=== PATIENT | female | born 1965 | race Caucasian/White ===

== ENCOUNTER 2023-07-16 23:23 | Inpatient (IN) | payer OTHER, SELFPAY ==
--- NOTE | ~2023-07-16 | XR_ITS ---
EXAMINATION: XR CHEST CLINICAL INFORMATION: Asthma. COMPARISON: None available. TECHNIQUE: Frontal view of the chest was obtained. FINDINGS: Normal appearance of the cardiomediastinal silhouette. Increased interstitial markings. No focal consolidation, pleural effusion or pneumothorax. Mild biapical subpleural thickening/scarring. Bony thorax is intact. XR/XR chest 1V IMPRESSION: Slightly increased interstitial markings that could be seen in the context of asthma, bronchitis, reactive airways disease or atypical infections.
[2023-07-16 23:26] VITALS: BP 146/80; PULSE 79; RESP 20; TEMP 36.6; O2SAT 99; BMI 28.1
[2023-07-17] VITALS (11 sets, daily range): BP systolic 107–126; BP diastolic 50–75; PULSE 73–102; RESP 16–18; TEMP 36.3–36.6; O2SAT 95–99
--- NOTE | 2023-07-17 | ECG_ITS ---
Test Reason : CHEST PAIN Blood Pressure : / mmHG Vent. Rate : 076 BPM Atrial Rate : 076 BPM P-R Int : 144 ms QRS Dur : 070 ms QT Int : 432 ms P-R-T Axes : 052 -07 013 degrees QTc Int : 486 ms Normal sinus rhythm Minimal voltage criteria for LVH, may be normal variant ( R in aVL ) Prolonged QT Abnormal ECG No previous ECGs available Referred By: Rufina Bryan Electronically Signed By:Kel Mayfield
[2023-07-17 00:48] LABS: Influenza A PCR NEGATIVE (Negative); Influenza B PCR NEGATIVE (Negative); Resp Syncy Virus RNA Qual PCR NEGATIVE (Negative); SARS COV2 PCR INHOUSE NEGATIVE (Negative)
--- NOTE | 2023-07-17 01:41 | ECG_ITS ---
Test Reason : SOB Blood Pressure : / mmHG Vent. Rate : 082 BPM Atrial Rate : 082 BPM P-R Int : 134 ms QRS Dur : 072 ms QT Int : 398 ms P-R-T Axes : 052 -04 028 degrees QTc Int : 464 ms Normal sinus rhythm with sinus arrhythmia Minimal voltage criteria for LVH, may be normal variant ( R in aVL ) Septal infarct , age undetermined Abnormal ECG No previous ECGs available Referred By: Generic ED Physician Electronically Signed By:OLEG MCKEON
[2023-07-17 01:57] LABS: MANUAL DIFF FLAG NO
[2023-07-17 01:59] LABS: Basophils Percent Auto 0.6 % (0-2); Eosinophils Absolute Auto 0.1 X10*3/uL (0.0-0.4); Hematocrit 36.1 % (37.0-47.0); Hemoglobin 12.4 g/dl (12.0-16.0); Imm Gran Abs Auto 0.01 X10*3/uL (0.00-0.03); Imm Gran Pct Auto 0.2 % (0.0-0.4); Lymphocytes Percent Auto 46.9 % (20-40); Mean Corpuscular HGB Conc 34.3 g/dl (31.0-35.0); Mean Corpuscular Hemoglobin 29.7 pg (27.0-33.0); Mean Corpuscular Volume 86.4 fL (80.0-98.0); Mean Platelet Volume 10.2 fL (9.4-12.3); Monocytes Absolute Auto 0.4 X10*3/uL (0.1-1.2); Monocytes Percent Auto 6.6 % (2-11); Neutrophils Absolute Auto 2.8 x10*3/uL (2.0-8.3); Neutrophils Percent Auto 43.7 % (45-73); Platelet Count 266 X10*3/uL (160-400); Red Blood Count 4.18 X10*6/uL (4.20-5.50); White Blood Count 6.4 X10*3/uL (4.8-10.8)
[2023-07-17 02:12] LABS: Anion Gap 15 (12-20); Blood Urea Nitrogen 23 mg/dL (9-16); Calcium 9.7 mg/dL (8.4-10.2); Carbon Dioxide 24 mmol/L (22-29); Chloride 107 mmol/L (96-108); Creatinine Clr Calc Pharmacy 58.7; Estimated Glomerular Filt Rate > 60; Glucose Random 99 mg/dL (60-115); Potassium 3.9 mmol/L (3.3-5.1); Sodium 142 mmol/L (135-145)
[2023-07-17] MEDS: Albuterol Sulfate 2.5 MG, Albuterol Sulfate (0.083%) 2.5 MG 5 MG INHALE (02:16)
[2023-07-17 02:24] LABS: Troponin-I High Sensitivity < 2.7 ng/L (<3.5-17.0)
--- NOTE | 2023-07-17 02:25 | PC.NURSE ---
Pt A&Ox3, Pt reports increase SOB with cough since Monday, states she tested + for flu. Pt speaking in full sentences, SpO2 99% on RA, RR 20, lung sounds wheezy. Pt reports CP stating while in [place] she stated having CP and rib pain worsening with coughing. RT at bedside. IV line placed.
--- OUTSIDE RECORDS SUMMARY | 2023-07-17 02:43 | XMS_ITS | Continuity of Care Document ---
Author Name Unknown Organization [facility] Address [address] [place] [address]- Care Team Providers Care Multimedia Educational Specialist Name Role Phone Zeb GRIJALVA, Oneida Paiz Primary Care Physician [phone] [place] [facility] [place] - 06/14/[address] [address] Attending Physician: Felisha Sanchez MD Admitting Physician: Felisha Sanchez MD Referring Physician: Felisha Sanchez MD Allergies, Adverse Reactions, Alerts Substance Reaction Severity Status Percocet itchy/ vomiting Active oxyCODONE Active traMADol Active Immunizations Given and Recorded Vaccine Date Status Refusal Reason influenza virus vaccine, inactivated 04/14/15 Give n influenza virus vaccine, inactivated 05/19/14 Give n tetanus-diphtheria toxoids (Td) 1 04/30/08 Given 1Admin Note: vis dated 12/24/93 given Medications acetaminophen 325 mg oral tablet 650 mg, By Mouth, Every 4 hours, PRN, Temperature Greater than 100.5, Refills 0, Maintenance, Pain , Mild, 01/31/21 7:42:00 EDT, Partial fill upon patient request if the prescription is for a schedule II opioid drug. Start Date: 01/31/21 Status: Ordered Flovent HFA 110 mcg/inh inhalation aerosol 2 puffs, Inhalation, 2 times a day, INHALE 2 PUFFS BY MOUTH TWICE A DAY Start Date: 01/28/21 Status: Ordered gabapentin 300 mg oral capsule 300 mg, 1, capsule, By Mouth, Daily at bedtime, TAKE 1 CAPSULE BY MOUTH EVERY DAY AT BEDTIME WITH 100MG CAPSULE Start Date: 01/28/21 Status: Ordered methocarbamol 750 mg oral tablet 1 tablet = 750 mg, By Mouth, 3 times a day, PRN Spasm, TAKE 1 TABLET BY MOUTH 3 TIMES DAILY NEEDED (MUSCLE SPASM, WILL CAUSE SEDATION). Start Date: 01/28/21 Status: Ordered montelukast 10 mg oral tablet 10 mg, 1, tablet, By Mouth, Daily, TAKE 1 TABLET BY MOUTH EVERY DAY AT BEDTIME Start Date: 01/28/21 Status: Ordered omeprazole 20 mg oral enteric coated capsule 1 capsule = 20 mg, By Mouth, Daily, TAKE 1 CAPSULE BY MOUTH EVERY DAY Start Date: 01/28/21 Status: Ordered predniSONE 10 mg oral tablet 4 tablet = 40 mg, By Mouth, Daily, Decrease by 1 tablet every third day and then stop, # 30 tablet,0 Refills, Maintenance, 01/31/21 7:44:00 EDT, Tablet, [facility], Partial fill upon patient request if the prescription is for a schedule... 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 pt went Social History Social History Type Response Smoking Status Former smoker; Tobac co user in household: No entered on: 09/24/15 Sex Patient Care team information Care Team Personnel Name: Claudia Tobar RN Position: S AMB Nurse Member Role: Primary Care Nurse Name: Zeb GRIJALVA, Oneida Paiz Position: Reference Physician Member Role: PCP Address: Address: [address] [place] [address], [address] [place] [address]- [place] Name: Carole JIMENEZ, Sia Position: S RN Member Role: Primary Care Nurse Care Team Related Persons Name: WILLY MUÑOZ Address: [address] [address] Name: LEOLA REDDY Address: [place] [address]
--- OUTSIDE RECORDS SUMMARY | 2023-07-17 02:43 | XMS_ITS | Continuity of Care Document ---
Author Name Unknown Organization [facility] Address [address], [address], [address] [place] [address]- Care Team Providers Care Utility Operator Yarn Name Role Phone Zeb GRIJALVA, Oneida D Primary Care Physician [phone] Encounter [facility] [place] Date(s): 09/30/20 - 10/30/20 [facility] [address], [address], [address] [place] [id number] Allergies, Adverse Reactions, Alerts Substance Reaction Severity Status Percocet itchy/ vomiting Active Immunizations Given and Recorded Vaccine Date Status Refusal Reason influenza virus vaccine, inactivated 04/14/15 Give n influenza virus vaccine, inactivated 05/19/14 Give n tetanus-diphtheria toxoids (Td) 1 04/30/08 Given 1Admin Note: vis dated 12/24/93 given Medications No Home Meds Maintenance, 02/17/17 14:44:51, Compound Start Date: 02/17/17 Status: Ordered Problem List Condition Effective Dates Status Health Status Inform ant Abnormal liver enzymes(Confirmed) Active Lockhart's Esophagus, 2014 bi opsies negative(Confirmed) 1, 2 Active Chronic neck pain, florentino dege netavie changes Xray 04/2013(Confirmed) Active Fibromyalgia(Confirmed) Active Heartburn symptom(Confirmed) Active Liver enzymes normal(Confirmed) Active Low back pain with sciatica(Confirmed) Active Migraines(Confirmed) Active Nausea(Confirmed) Active Nonspecific Low Blood Pressu re Reading, chronically low(Confirmed) Active Non-ulcer dyspepsia(Confirmed) Active Urinary incontinence(Confirmed) Active no metaplasia 2old records state that in 2012 in her previous PCP, sent to EGD for this Barretts? pt went Social History Social History Type Response Smoking Status Former smoker; Tobac co user in household: No entered on: 09/24/15 Sex
--- OUTSIDE RECORDS SUMMARY | 2023-07-17 02:43 | XMS_ITS | Continuity of Care Document ---
Author Name Unknown Organization [facility] Address [address] [place] [address]- Care Team Providers Care Sawsmith Name Role Phone Zeb GRIJALVA, Oneida Paiz Primary Care Physician Encounter [facility] Date(s): 12/21/22 - 12/21/[address] [address]- Encounter Diagnosis RUQ abdominal pain(Final) - 12/21/22 Bacteriuria(Final) - 12/21/22 Vomiting(Final) - 12/21/22 Discharge Disposition: A-D/C Home Attending Physician: Shalom Anderson MD Admitting Physician: Shalom Anderson MD Referring Physician: Not on Staff, Referring MD Allergies, Adverse Reactions, Alerts Substance Reaction Severity Status Percocet itchy/ vomiting Active traMADol Active oxyCODONE Active Immunizations Given and Recorded Vaccine Date [...] AT BEDTIME Start Date: 01/28/21 Status: Ordered MorPHINE Inj 4 mg, Injection, IV Push Slowly, Once, Routine, 12/21/22 16:00:00 EDT, Stop date 12/21/22 16:00:00 EDT Start Date: 12/21/22 Stop Date: 12/21/22 Status: Completed omeprazole 20 mg oral enteric coated capsule 1 capsule = 20 mg, By Mouth, Daily, TAKE 1 CAPSULE BY MOUTH EVERY DAY Start Date: 01/28/21 Status: Ordered ondansetron 4 mg oral tablet, disintegrating 1 tablet = 4 mg, By Mouth, Every 8 hours, PRN as needed for nausea/vomiting, for 3 days, # 9 tablet, 0 Refills, Acute 12/24/22 19:01:00 EDT, 12/21/22 19:01:00 EDT, DIS Tablet, [facility], Partial fill upon patient request if the prescrip... Start Date: 12/21/22 Stop Date: 12/24/22 Status: Ordered predniSONE 10 mg oral tablet 4 tablet = 40 mg, By Mouth, Daily, Decrease by 1 tablet every third day and then stop, # 30 tablet,0 Refills, Maintenance, 01/31/21 7:44:00 EDT, Tablet, [facility], Partial fill upon patient request [...] 2 Confirmed Active Chronic neck pain, florentino degenetavie changes Xray 04/2013 Confirmed Active Fibromyalgia Confirmed [...] to EGD for this Barretts? pt went Results Radiology Reports * Exam Date Time Procedure Performing Provider Status 12/21/22 4:05 PM US RUQ Tevin Emerson; Auth (V erified) Notes: (US RUQ) Reason For Exam: Cholecystitis RESULT: US RUQ US RUQ Hx of Present Illness: RUQ sharp pain x3 days. +nausea, dizziness, fatigued. My liver enzymes are elevated, was last checked 2 months ago .; Reason: Cholecystitis; Clinical Question(s): Cholecystitis COMPARISON: 08/05/2013. FINDINGS: Liver: Normal in size and echotexture. No focal lesion. Smooth hepatic contour. Main portal vein patent with normal hepatopetal direction of flow. Gallbladder: No gallstones. Normal wall thickness. No pericholecystic fluid. Negative Granados sign, although patient received analgesic premedication which may reduce the accuracy of this finding. Biliary Tree: No intrahepatic or extrahepatic bile duct dilation is identified. Common duct measures: 0.5 cm. Pancreas: No abnormality in the visualized portions of the pancreas. Right kidney: 11.5 cm in length. Normal parenchymal echotexture and thickness. No hydronephrosis, stone or mass. IMPRESSION: Normal right upper quadrant ultrasound. WSN: [id number] Ordering Physician: Joanne Maddox Dictated By: Indio Tabares MD Dictated Date/Time: 12/21/22 4:39 pm Reviewed By: Indio Tabares MD Signed By: Indio Tabares MD Signed Date/Time: 12/21/22 4:39 pm Transcribed By: CLAUDE Transcribed Date/Time: 12/21/22 4:37 pm Vital Signs Most recent to oldest [Reference Range]: 1 2 3 Height 145 cm (12/21/22 7:13 PM) 145 cm (12/21/22 12:55 PM) Weight 58.2 kg (12/21/22 7:13 PM) 58.2 kg (12/21/22 12:55 PM) Oxygen Saturation [94-100 %] 97 % (12/21/22 7:13 PM) 99 % (12/21/22 3:20 PM) 97 % (12/21/22 12:55 PM) Pulse Rate [55-90 bpm] 65 bpm (12/21/22:13 PM) 62 bpm (12/21/22 3:20 PM) 85 bpm (12/21/22 12:55 PM) Body Mass Index [18.5-24.99 kg/m2] 27.68 kg/m2 *H* (12/21/22:) Blood Pressure [90-138/55-84 mm Hg] 98/62mm Hg (12/21/22:13 PM) 109/54mm Hg (12/21/22 3:20 PM) 111/64mm Hg (12/21/22 12:55 PM) Respiratory Rate [16-30 br/min] 18 br/min (12/21/22:13 PM) 18 br/min (12/21/22 3:25 PM) 16 br/min (12/21/22 3:20 PM) Temperature [96.8-100.4 DegF] 97.4 DegF (12/21/22:13 PM) 97 DegF (12/21/22 3:20 PM) 98.5 DegF (12/21/22 12:55 PM) Mode of Delivery (Oxygen) Room air (12/21/22 7:13 PM) Room air (12/21/22 3:20 PM) Room air (12/21/22 12:55 PM) Blood pressure sites Arm, right (12/21/22:13 PM) Arm, left (12/21/22 12:55 PM) Temperature Route Oral (12/21/22 7:13 PM) Temporal (12/21/22 3:20 PM) Temporal (12/21/22 12:55 PM) Dry Weight 58.2 kg (12/21/22 7:13 PM) 58.2 kg (12/21/22 12:55 PM) Weight Obtained Via Standing scale (12/21/22 12:55 PM) Dry Weight Obtained Via Standing scale (12/21/22 12:55 PM) Social History Social History Type Response Smoking Status Former smoker; Tobac co user in household: No entered on: 09/24/15 Sex Note * Joanne Hess: PERFORM Event Display: Patient Education Leaflets Authored Date: [id number] Vomiting (Adult) ?? [id number] Vomiting (Adult) Vomiting is a common symptom that may be due to different causes. These include gastroenteritis (stomach flu), food poisoning, and gastritis. Other more serious causes of vomiting may be hard to diagnose early in the illness. That's why it's important to watch for the warning signs listed below. The main danger from repeated vomiting is dehydration. This is because of the loss of water and minerals from the body. When this occurs, your body fluids must be replaced. Home care ??? If symptoms are severe, rest at home for the next 24 hours. ??? Because your symptoms may be from an infection, wash your hands often and well. Use soap and clean, running water or alcohol-based golf course designer to keep from spreading the infection to others. ??? Wash your hands for at least 20 seconds. Scrub all surfaces of your hands, including between your fingers and under your fingernails each time you wash. Humming the Happy Birthday song twice while you wash is an easy way to make sure you've washed for 20 seconds. ??? Wash your hands after using the toilet, before and after preparing food, before eating food, after changing a diaper, cleaning a wound, caring for a sick person, and blowing your nose, coughing, or sneezing. You should also wash your hands after caring for someone who is sick, touching pet food, or treats, and touching an animal, or animal waste. ??? You may use acetaminophen??or NSAID medicines such as ibuprofen or naproxen to control fever, unless another medicinewas prescribed. Talk with your provider before using these medicines if you have chronic liver or kidney disease or ever had a stomach ulcer or digestive bleeding. Never give aspirin to anyone younger than 18 who is ill with a fever. It may cause severe liver damage. Don't use NSAID medicines if you are already taking one for another condition such as arthritis or take aspirin for heart disease or after a stroke. ??? Don't use tobacco or drink alcohol. These may make your symptoms worse. If youhave trouble stopping either substance, ask your provider for treatment resources. ??? If medicinesfor vomiting were prescribed, take as directed. Tell your provider if they don't work within the expected time period. ??? Once vomiting stops, then follow these guidelines: During the first 12 to 24 hours, follow the diet below: ??? Fruit juices. Apple, grape juice, clear fruit drinks, and electrolyte replacement drinks. ??? Beverages. Water, soft drinks without caffeine; mineral water (plain or flavored), and decaffeinated tea and coffee. ??? Soups. Clear broth and bouillon. ??? Desserts. Plain gelatin, ice pops, and fruit juice bars. As you feel better, you may add 6 to 8 ounces of yogurt per day. During the next 24 hours you may add the following to the above: ??? Hot cereal, plain toast, bread, rolls, and crackers ??? Plain noodles, rice, mashed potatoes, and chicken noodle or rice soup ??? Unsweetened canned fruit such as applesauce, bananas. Don't have pineapple or citrus. ??? Limit caffeine and chocolate. No spices or seasonings except salt. During the next 24 hours: Gradually go back to your normal diet, as you feel better and your symptoms lessen. ?? Follow-up care Follow up with your healthcare provider as advised. ?? When to seek medical advice Call your healthcare provider right away if any of these occur: ??? Constant right-sided lower belly pain or increasing general belly pain ??? Continued vomiting (unable to keep liquids down) for 24 hours ??? Vomiting blood or what looks like coffee grounds ??? Swollen belly ??? Frequent diarrhea (more than 5 times a day), or blood (red or black color) or mucus in diarrhea ??? Peeing less than usual or extreme thirst ??? Weakness, dizziness, or fainting ??? Unusually drowsy or confused ??? Fever of 100.4??F (38??C) oral or higher, or as directed by your provider ??? Yellow color of the eyes or skin ??? Other symptoms get worse or you have new symptoms ?? Last Reviewed Date: 2021 ?? [employer]. All rights reserved. This information is not intended as a substitute for professional medical care. Always follow your healthcare professional's instructions. ?? * Joanne Hess: PERFORM Event Display: Patient Education Leaflets Authored Date: [id number] Unknown Causes of Abdominal Pain (Adult) ?? [id number] Unknown Causes of Abdominal Pain (Adult) The exact cause of your belly (abdominal) pain is not clear. Your exam and tests don't suggest a dangerous cause at this time. This does not mean that this is something to worry about. Everyone likesto know the exact cause of the problem. But sometimes with belly pain, there is no clear-cut cause,and this could be a good thing. Your symptoms can be treated, and you should feel better.?? Your condition does not seem serious now. But sometimes the signs of a serious problem may take more time to appear. For this reason,??it's important for you to watch for any new symptoms, problems,??or worsening of your condition. Over the next few days, the abdominal pain may come and go. Or it may be constant. Other common symptoms can include nausea and vomiting. Sometimes it can be difficult to tell if you feel nauseous. You may just feel bad and not connect that feeling to nausea. Constipation, diarrhea, and a fever maygo along with the pain. The pain may continue even if treated correctly over the following days. Depending on how things go, sometimes the cause can become clear and you may need more??or different treatment. You may also need other evaluations, medicines, or tests. Home care Your healthcare provider may prescribe medicine for pain, symptoms, or an infection. ??Follow the healthcare provider's instructions for taking these medicines. General care ??? Rest as much as you can until your next exam. No strenuous activities. ??? Try to not do anything that may have caused your symptoms. This might be not taking any medicines unless otherwise directed by your healthcare provider. It might be not eating certain foods or doing certain activities. ??? Find positions that ease discomfort. A small pillow placed on your belly may help relieve pain. ??? Something warm on your belly such as a heating pad may help, but be careful not to burn yourself. Diet ??? Don???t??force yourself to eat, especially if having cramps, vomiting, or diarrhea. ??? Water is important so you don't get dehydrated. Soup may also be good. Sports drinks may also help, especially if they are not too acidic. Don't drink sugary drinks as this can make things worse. Take liquids in small amounts. Don???t??guzzle them. ??? Caffeine sometimes makes the pain and cramping worse. ??? Don???t take??dairy products if you have vomiting or diarrhea. ??? Don't eat large amounts at a time. Eat several small meals during the day instead of 2 or 3 larger meals. Wait a few minutesbetween bites. ??? Eat a diet low in fiber (called a low-residue diet). Foods allowed include refined breads, white rice, fruit and vegetable juices without pulp, tender meats. These foods will pass more easily through the intestine. ??? Don???t have??whole-grain foods, whole fruits and vegetables,meats, seeds and nuts, fried or fatty foods, dairy, alcohol and spicy foods until your symptoms go away. ?? Follow-up care Follow up with your healthcare provider, or as advised, if your pain does not begin to improve in the next 24 hours. ?? Call 911 Call?? 911 if any of these occur: ??? Trouble breathing ??? Confusion ??? Fainting or loss of consciousness ??? Rapid heart rate ??? Seizure ?? When to seek medical advice Call your healthcare provider right away if any of these occur: ??? Pain gets worse or moves to theright lower abdomen ??? New or worsening vomiting or diarrhea ??? Swelling of the abdomen ??? Unable to pass stool for more than??3 days ??? Fever of 100.4??F (38??C) or higher, or as directed by your healthcare provider ??? Blood in vomit or bowel movements (dark red or black color) ??? Yellow color of eyes and skin (jaundice) ??? Weakness, dizziness ??? Chest, arm, back, neck, or jaw pain ??? Can't keep down medicines, liquids, or water because of too much vomiting ??? If you have a vagina: unexpected vaginal bleeding or missed period ?? Last Reviewed Date: 2021 ?? [id number] [employer]. All rights reserved. This information is not intended as a substitute for professional medical care. Always follow your healthcare professional's instructions. ?? US Abdomen RUQ * BHSP[facility]ers[employer] , CIS S: TRANSCRIBE Indio Tabares MD: VERIFY Event Display: Result: Authored Date: [id number] US RUQ Hx of Present Illness: RUQ sharp pain x3 days. +nausea, dizziness, fatigued. My liver enzymes are elevated, was last checked 2 months ago .; Reason: Cholecystitis; Clinical Question(s): Cholecystitis COMPARISON: 08/05/2013. FINDINGS: Liver: Normal in size and echotexture. No focal lesion. Smooth hepatic contour. Main portal vein patent with normal hepatopetal direction of flow. Gallbladder: No gallstones. Normal wall thickness. No pericholecystic fluid. Negative Granados sign, although patient received analgesic premedication which may reduce the accuracy of this finding. Biliary Tree: No intrahepatic or extrahepatic bile duct dilation is identified. Common duct measures: 0.5 cm. Pancreas: No abnormality in the visualized portions of the pancreas. Right kidney: 11.5 cm in length. Normal parenchymal echotexture and thickness. No hydronephrosis, stone or mass. IMPRESSION: Normal right upper quadrant ultrasound. WSN: [id number] Ordering Physician: Joanne Maddox Dictated By: Indio Tabares MD Dictated Date/Time: 12/21/22 4:39 pm Reviewed By: Indio Tabares MD Signed By: Indio Tabares MD Signed Date/Time: 12/21/22 4:39 pm Transcribed By: CLAUDE Transcribed Date/Time: 12/21/22 4:37 pm Patient Care team information Care Team Personnel Name: Claudia Tobar RN Position: [facility] AMB Nurse Member Role: Primary Care Nurse Name: Oneida Carrington MD Position: [facility] Physician - Primary Care Member Role: PCP Address: Address: [address] [place] [address]- Name: Sia Lam RN Position: [facility] RN Member Role: Primary Care Nurse Name: Paz Dixon RN Position: [facility] ED RN W/OE and Tasks Member Role: Patient Care Provider Name: Asa Dodd RN Position: [facility] ED RN W/OE and Tasks Member Role: Patient Care Provider Name: Shalom Anderson MD Position: [facility] ED Medicine MD Member Role: Admitting Physician Address: Address: [address] [place] [id number]- Name: Joanne Hess Position: [facility] Associate Professional Member Role: Physician Health Safety And Environment Manager Address: Address: [address] [place] [id number]- Name: Noris Caicedo Position: [facility] ED TA [facility] Member Role: Cafeteria Team Leader Care Team Related Persons Name: TONI WILLY Address: [address] [address] Name: LEOLA REDDY Address: [place] [address]
--- OUTSIDE RECORDS SUMMARY | 2023-07-17 02:44 | XMS_ITS | Continuity of Care Document ---
Author Name Unknown Organization [facility] ter Address [address] [place] [id number]- Care Team Providers Care Truck Driver Instructor Name Role Phone Zeb GRIJALVA, Oneida Chencho Primary Care Physician Encounter [facility] Date(s): 01/28/21 - 01/31/[address] [address]- Discharge Disposition: A-D/C Home Attending Physician: Fawad GRIJALVA, Luisito Admitting Physician: Rey Mullen MD Referring Physician: Not on Staff, Referring [...] tablet,0 Refills, Maintenance, 01/31/21 7:44:00 EDT, Tablet, [facility], Partial fill upon patient request [...] Date: 01/28/21 Status: Ordered Problem List Condition Effective Dates Status Health Status Inform ant Abnormal liver enzymes(Confirmed) Active Lockhart's Esophagus, 2014 bi opsies negative(Confirmed) 1, 2 Active Chronic neck pain, florentino jennifer netavie changes Xray 04/2013(Confirmed) Active Fibromyalgia(Confirmed) Active Heartburn symptom(Confirmed) Active Liver enzymes normal(Confirmed) Active Low back pain with sciatica(Confirmed) Active Migraines(Confirmed) Active Nausea(Confirmed) Active Nonspecific Low Blood Pressu re Reading, chronically low(Confirmed) Active Non-ulcer dyspepsia(Confirmed) Active Urinary incontinence(Confirmed) Active no metaplasia 2old records state that in 2012 in her previous PCP, sent to EGD for this Barretts? pt went Vital Signs Most recent to oldest [Reference Range]: 1 2 3 Height 150 cm (01/31/21 7:58 AM) 150 cm (01/31/21 3:27 AM) 150 cm (01/31/21 12:20 AM) Weight 59 kg (01/28/21 7:47 PM) Oxygen Saturation [94-100 %] 96 % (01/31/21 7:58 AM) 94 % (01/31/21 3:27 AM) 98 % (01/31/21 12:20 AM) Pulse Rate [55-90 bpm] 70 bpm (01/31/21 7:58 AM) 69 bpm (01/31/21 3:27 AM) 71 bpm (01/31/21 12:20 AM) Body Mass Index [18.5-24.99] 26.22 *H* (01/28/21 7:47 PM) Blood Pressure [90-138/55-84 mm Hg] 102/56mm Hg (01/31/21 7:58 AM) 104/59mm Hg (01/31/21 3:27 AM) 117/65mm Hg (01/31/21 12:20 AM) Respiratory Rate [16-30 br/min] 17 br/min (01/31/21 7:58 AM) 18 br/min (01/31/21 7:23 AM) 20 br/min (01/31/21 3:27 AM) Temperature [96.8-100.4 DegF] 98.0 DegF (01/31/21 7:58 AM) 97.6 DegF (01/31/21 3:27 AM) 98.5 DegF (01/31/21 12:20 AM) Mode of Delivery (Oxygen) Room air (01/31/21 7:58 AM) Room air (01/31/21 3:27 AM) Room air (01/31/21 12:20 AM) Blood pressure sites Arm, left (01/31/21 7:58 AM) Arm, left (01/31/21 3:27 AM) Arm, right (01/31/21 12:20 AM) Temperature Route Oral (01/31/21 7:58 AM) Oral (01/31/21 3:27 AM) Oral (01/31/21 12:20 AM) Dry Weight 59 kg (01/28/21 7:47 PM) Weight Obtained Via Patient/family state d (01/28/21 7:47 PM) Dry Weight Obtained Via Patient/family s tated (01/28/21 7:47 PM) Social History Social History Type Response Smoking Status Former smoker; Tobac co user in household: No entered on: 09/24/15 Sex
--- OUTSIDE RECORDS SUMMARY | 2023-07-17 02:44 | XMS_ITS | Continuity of Care Document ---
Author Name Unknown Organization [facility] Address [address], [address], [address] [place] [address]- Care Team Providers Care Flexible Machining System Machinist Name Role Phone Zeb GRIJALVA, Oneida D Primary Care Physician [place] [facility] [place] [facility] [address] [place], [place] [address] [[email or web address]] Attending Physician: Marija Juarez Admitting Physician: Marija Juarez Referring Physician: AdmtrMarija Allergies, Adverse Reactions, Alerts Substance Reaction Severity [...]
--- OUTSIDE RECORDS SUMMARY | 2023-07-17 02:44 | XMS_ITS | Continuity of Care Document ---
Author Name Unknown Organization [facility] Address [address], [address], [address] [place] [address]- Care Team Providers Care Casino Change Attendant Name Role Phone Zeb GRIJALVA, Oneida D Primary Care Physician [phone] [place] [facility] [place]20 [facility] [address], [address] [place] [id number] Attending Physician: Daniela Carrington MD, [facility] Referring Physician: Skyler Fry Allergies, Adverse Reactions, Alerts Substance Reaction Severity [...]
--- NOTE | 2023-07-17 03:40 | ED_ITS ---
HPI - Asthma General Chief Complaint: Asthma Stated Complaint: Diff breathing Time Seen by Provider: 07/17/23 03:39 Source: patient Mode of arrival: ambulatory Limitations: no limitations History of Present Illness HPI Narrative: 58-year-old female with a history of asthma who presents emergency department for evaluation of fever, chills, headache, body ache, nonproductive cough, pleuritic chest pain, shortness of breath and wheezing x3 days. Patient states that she has been using her albuterol inhaler every 4 hours and her nebulizer twice a day with no improvement her symptoms. She states that her cough is gotten worse. She is complaining of pleuritic chest pain which is worse with coughing worse with breathing. Related Data Allergies Allergy/AdvReac Type Severity Reaction Status Date / Time acetaminophen [From Percocet] Allergy Weakness Verified 07/16/23 23:25 oxycodone [From Percocet] Allergy Weakness Verified 07/16/23 23:25 Review of Systems 2 Review of Systems: Yes all other systems are reviewed and are negative [facility] Past Medical History [facility] Narrative: Social history: She denies tobacco, alcohol and drug use Social History Social History Alcohol intake: never Smoked in Last 30 Days: No Use of substances other than those prescribed or required for medical reasons: No Advance Directives: No Advance Directives Information Provided: Yes Patient : No Physical Exam 2 Vital Signs: Vital Signs: Last Vital Signs Temp 97.8 F 07/16/23 23:26 Pulse 102 H 07/17/23 04:37 Resp 18 07/17/23 04:37 BP 120/75 07/17/23 04:37 Pulse Ox 98 07/17/23 04:37 O2 Del Method Room Air 07/17/23 04:37 BMI result Body Mass Index 28.1 Vital signs were normal Exam General: Awake, alert in no distress, patient has a persistent dry cough Head: Normocephalic, atraumatic EENT: PERRL, Lids normal, sclera normal, conjunctiva normal, nose normal , ears normal, throat without erythema or exudates Neck: Supple, no adenopathy, no trachea midline or C-spine tenderness Lung: Wheezing at the end of expiration, good inspiratory expiratory flow, diffuse rhonchi, no rales Chest: symmetric movement, nontender Heart: regular rate and rhythm, normal S1, S2 no murmurs or rubs Abdomen: soft, non-tender, nondistended, normal bowel sounds Back: no vertebral tenderness, no CVAT Extremities: no deformities, moves all extremities symmetrically Neuro: Awake, alert, oriented, normal speech, moves all extremities symmetrically Psych: Pleasant, cooperative Medications Administered Discontinued Medications Generic Name Dose Route Start Last Admin Trade Name Freq PRN Reason Stop Dose Admin Albuterol Sulfate 2.5 mg/ 5 mg 07/17/23 02:09 07/17/23 02:16 Albuterol Sulfate 2.5 mg INHALE 07/17/23 02:10 5 mg ONCE ONE Administration Albuterol/Ipratropium 3 ml 07/17/23 03:52 07/17/23 04:19 Albuterol/Iprat 2.5/0.5mg 3 Ml Ampul.Neb INHALE 07/17/23 03:53 3 ml ONCE ONE Administration Doxycycline Monohydrate 100 mg 07/17/23 03:50 07/17/23 03:59 Doxycycline Monohydrate 100 Mg Capsule PO 07/17/23 03:51 100 mg ONCE ONE Administration Methylprednisolone Sodium Succinate 125 mg 07/17/23 03:50 07/17/23 03:59 Methylprednisolone Sod Succ 125 Mg/2 Ml Vial IVPUSH 07/17/23 03:51 125 mg ONCE ONE Administration Medical Decision Making Medical Decision Making MDM Narrative: 58-year-old female with a history of asthma who presents emergency department for evaluation of fever, chills, headache, body ache, nonproductive cough, pleuritic chest pain, shortness of breath and wheezing x3 days. Patient has been using her inhalers and nebulizers with only minimal relief. Symptoms of got worse therefore she came to the emergency department. Vital signs were normal. Lung exam did reveal diffuse wheezing and rhonchi with good inspiratory and expiratory flow. Following evaluation was ordered: CBC, BMP, troponin, COVID-19, influenza, RSV, 12 EKG, chest x-ray 1. Patient was treated with Solu-Medrol 125 mg IV, albuterol nebulizer 5 mg IV 03:56 My interpretation patient's laboratory evaluation is as follows: CBC and CMP were normal. Troponin was below detectable limits. COVID-19, influenza and RSV were negative. Patient's chest x-ray revealed increased interstitial infiltrates consistent with atypical pneumonia Patient was given doxycycline 100 mg orally Patient was still wheezing therefore she was given a DuoNeb nebulizer 04:53 Patient states she is unable to complete the 2nd nebulizer secondary to nausea and vomiting. Patient is still wheezing and has not improved therefore I will discuss admission with the covering hospitalist. I did order ceftriaxone 1 g IV and Zithromax 500 mg IV for respiratory infection. Differential Diagnosis Differential Diagnoses: The differential diagnosis associated with the presentation includes Differential diagnosis includes was not limited to pneumonia, bronchitis, asthma exacerbation, viral syndrome, COVID-19, influenza, RSV Admission/Observation Consideration of admission/observation: Escalation of care including admission/observation considered Consult Healthcare Provider Management of the patient was discussed with: Hospitalist Lab Data MDM Lab Attestation statement: I reviewed the patient's lab results. See above 07/17/23 01:51 07/17/23 01:51 Labs: Lab Results 07/17/23 07/17/23 Range/Units 00:05 01:51 WBC 6.4 (4.8-10.8) X10*3/uL RBC 4.18 L (4.20-5.50) X10*6/uL Hgb 12.4 (12.0-16.0) g/dl Hct 36.1 L (37.0-47.0) % MCV 86.4 (80.0-98.0) fL MCH 29.7 (27.0-33.0) pg MCHC 34.3 (31.0-35.0) g/dl RDW 12.0 (11.0-16.0) % Plt Count 266 (160-400) X10*3/uL MPV 10.2 (9.4-12.3) fL Immature Gran % (Auto) 0.2 (0.0-0.4) % Neut % (Auto) 43.7 L (45-73) % Lymph % (Auto) 46.9 H (20-40) % [place] % (Auto) 6.6 (2-11) % Eos % (Auto) 2.0 (0-4) % Baso % (Auto) 0.6 (0-2) % Lymph # (Auto) 3.0 (1.2-4.9) X10*3/uL [place] # (Auto) 0.4 (0.1-1.2) X10*3/uL Eos # (Auto) 0.1 (0.0-0.4) X10*3/uL Baso # (Auto) 0.0 (0.0-0.2) X10*3/uL Abs Immat Gran (auto) 0.01 (0.00-0.03) X10*3/uL Absolute Neuts (auto) 2.8 (2.0-8.3) x10*3/uL Absolute Nucleated RBC 0.000 (0.0-0.012) X10*3/uL Nucleated RBC % (auto) 0.0 (0.0-0.2) /100WBC Sodium 142 (135-145) mmol/L Potassium 3.9 (3.3-5.1) mmol/L Chloride 107 (96-108) mmol/L Carbon Dioxide 24 (22-29) mmol/L Anion Gap 15 (12-20) BUN 23 H (9-16) mg/dL Creatinine 0.79 (0.5-1.4) mg/dL Estim Creat Clear Calc 58.7 Estimated GFR > 60 Random Glucose 99 (60-115) mg/dL Calcium 9.7 (8.4-10.2) mg/dL Troponin I High Sens < 2.7 (<3.5-17.0) ng/L Influenza Type A (PCR) NEGATIVE (Negative) Influenza Type B (PCR) NEGATIVE (Negative) RSV RNA Qual (PCR) NEGATIVE (Negative) SARS-CoV-2 RNA (RT-PCR) NEGATIVE (Negative) Independent Interpretation I performed an independent interpretation of an: EKG Interpretation: My interpretation patient's EKG done at 01:45 hours is as follows: Normal sinus rhythm rate of 82, normal WV interval, QRS duration and QTC interval, no ST segment elevation, no ST segment depression, flat T-wave in lead 3, no PACs, no PVCs, Q-wave in V1 in V 2 consistent with septal infarct. No previous EKG for comparison My interpretation patient's one-view chest x-ray is as follows: Increased interstitial markings consistent with atypical pneumonia Radiology Impression Discussion of test interpretation with radiology: I have reviewed the radiologist's reading. Radiologist Impression: XR chest 1V IMPRESSION: Slightly increased interstitial markings that could be seen in the context of asthma, bronchitis, reactive airways disease or atypical infections. Dictated By: Ana Gonzalez Independent Historian Clinical information obtained from an independent historian. History obtained from or confirmed by: Spouse Discharge Plan Discharge Patient Disposition: Admitted As Inpatient
[2023-07-17] MEDS: methylPREDNISolone Sod Succ 125 MG/2 ML VIAL IVPUSH (03:59)
[2023-07-17] MEDS: Doxycycline Monohydrate 100 MG CAPSULE PO (03:59)
[2023-07-17] MEDS: Albuterol/Iprat 2.5/0.5MG 3 ML AMPUL.NEB INHALE ×4 (04:19→20:25)
[2023-07-17] MEDS: ondansetron HCL 4 MG/2 ML VIAL IVPUSH (05:28)
[2023-07-17] MEDS: cefTRIAXone sodium 1 GM in 0.9 % Sodium Chloride 50 ML IV (05:30)
[2023-07-17 05:50] LABS: Lactic Acid 1.7 mmol/L (0.5-2.0)
[2023-07-17] MEDS: Azithromycin 500 MG in 0.9 % Sodium Chloride 250 ML 125 MG IV (05:55)
--- NOTE | 2023-07-17 06:00 | P.HPHOSP_ITS ---
History of Present Illness Date of Service: 07/17/23 Attending physician on admission: John Field Chief Complaint: 'My asthma has flared up' x 4 days Patient is a 58 year old [place]se speaking female with known history of asthma and who was recently diagnosed with the flu who presents to the emergency room last evening for evaluation of progressively worsening cough, shortness of breath and wheezing. She started feeling unwell soon after Kaci and saw her primary care provider on 07/12/23 and was diagnosed with the flu and was sent home with MDI inhalers. However since then, she has continued to experience subjective fevers and chills, generalized body aches, headaches, dry cough and pleuritic chest pain. Over the last couple days she has noted worsening symptoms especially the cough, wheezing and shortness of breath. She has used both her Albuterol MDI inhalers and updrafts without any significant relief hence her decision to present to the emergency room tonight where initial evaluation done on arrival was notable for extensive wheezing and mild respiratory distress. She was however not febrile and a chest x-ray done did not show any infiltrates. She has received intravenous Solu-Medrol, albuterol updrafts and empiri antibiotics with improvement in her condition though she is not at her baseline. Admission was requested for continued care. Review of Systems 2 Review of Systems: Yes all other systems are reviewed and are negative [facility] Medical History Elevated liver enzymes Asthma (Unknown) Functional capacity: independent ambulation Patient : No Pertinent family history: This was reviewed with the patient and is not pertinent to current admission. Surgical History History of bladder surgery Social History Alcohol intake: never Meds Allergies Allergy/AdvReac Type Severity Reaction Status Date / Time acetaminophen [From Percocet] Allergy Weakness Verified 07/16/23 23:25 oxycodone [From Percocet] Allergy Weakness Verified 07/16/23 23:25 Home Medications Medication Instructions Recorded Confirmed Last Taken Type albuterol sulfate 2.5 mg/3 mL 1 inhalation Q6H PRN wheezing 07/17/23 Unknown History (0.083 %) solution for nebulization albuterol sulfate 90 mcg/actuation 2 puff inhalation Q4H PRN wheezing 07/17/23 07/17/23 Unknown History aerosol inhaler (Ventolin HFA) cholecalciferol (vitamin D3) 50 50 mcg PO DAILY 07/17/23 07/17/23 Unknown History mcg (2,000 unit) tablet vitamin E (dl, acetate) 180 mg 360 mg PO DAILY 07/17/23 07/17/23 Unknown History (400 unit) capsule Physical Exam 2 Vital Signs and Narrative: Vital Signs: Last Vital Signs Temp 97.8 F 07/16/23 23:26 Pulse 102 H 07/17/23 04:37 Resp 18 07/17/23 04:37 BP 120/75 07/17/23 04:37 Pulse Ox 98 07/17/23 04:37 O2 Del Method Room Air 07/17/23 04:37 BMI result Body Mass Index 28.1 General: Well nourished female in bed. Awake, alert and oriented x 4. In no apparent distress Eyes: No pallor or jaundice. PERRLA, EOMI HENT: Moist oral mucus membranes. No oropharyngeal lesions. Neck: Supple. No cervical adenopathy. No JVD Cardiovascular: Regular rate and rhythm. Normal heart sounds. No murmurs, rubs or gallops. No JVD. No peripheral edema. Respiratory: Normal respiratory effort with no accessory muscle use. Both inspiratory and expiratory wheezes scattered throughout both lung samuel Gastrointestinal: Abdomen is soft, non-tender, non-distended. NABS. No hepatosplenomegaly Extremities: No edema. No calf tenderness. Good peripheral pulses Skin: Warm/Dry. No rashes. No mottling. Capillary refill is < 2 seconds Neurological: AAOx4. Intact speech & cognition. Normal gait & balance. CN II - XII grossly intact but not individually tested. No motor or sensory deficits Hematologic: No bleeding. No ecchymosis. No swollen or tender lymph nodes. Psychiatric: Cooperative. Appropriate mood and affect . Results Labs 07/17/23 01:51 07/17/23 01:51 Labs: Laboratory Results - last 24 hr 07/17/23 07/17/23 07/17/23 00:05 01:51 05:29 MCV 86.4 MCH 29.7 MCHC 34.3 RDW 12.0 Plt Count 266 MPV 10.2 Immature Gran % (Auto) 0.2 Neut % (Auto) 43.7 L Lymph % (Auto) 46.9 H [place] % (Auto) 6.6 Eos % (Auto) 2.0 Baso % (Auto) 0.6 Lymph # (Auto) 3.0 [place] # (Auto) 0.4 Eos # (Auto) 0.1 Baso # (Auto) 0.0 Abs Immat Gran (auto) 0.01 Absolute Neuts (auto) 2.8 Absolute Nucleated RBC 0.000 Nucleated RBC % (auto) 0.0 Anion Gap 15 Estim Creat Clear Calc 58.7 Estimated GFR > 60 Random Glucose 99 Lactic Acid 1.7 Calcium 9.7 Influenza Type A (PCR) NEGATIVE Influenza Type B (PCR) NEGATIVE RSV RNA Qual (PCR) NEGATIVE SARS-CoV-2 RNA (RT-PCR) NEGATIVE ECG Interpretation: Normal sinus rhythm at 82 beats per minute with a normal MO interval and no acute ischemic changes. Imaging Radiologist's Impressions: Impressions Chest X-Ray 07/17/23 00:30 Slightly increased interstitial markings that could be seen in the context of asthma, bronchitis, reactive airways disease or atypical infections. Assessment and Plan (1) Asthma: Qualifiers: Asthma severity: severe Asthma persistence: persistent Asthma complication type: with acute exacerbation Qualified Code(s): J45.51 - Severe persistent asthma with (acute) exacerbation Status: Acute (2) Acute bronchitis: Status: Acute (3) Influenza: Status: Acute Plan 58 year old [place] speaking female with known history of asthma and who was recently diagnosed with the flu here with 1. Acute asthma exacerbation - likely exacerbated by the flu - admit and continue with scheduled steroids and duo nebs AND PRN Albuterol updrafts - add IV magnesium x1 dose - monitor peak flow 2. Acute bronchitis - likely a viral bronchitis - hold off antibiotics 3. Recent diagnosis of Flu - outside the window for treatment - continue symptomatic care DVT: SC Lovenox CODE STATUS: Full code Admission for at least 2 midnights for management of acute asthma exacerbation Total time managing care of this patient today: 75 minutes. Quality Stroke Does the patient have a stroke diagnosis?: No VTE Prior VTE?: No VTE Risk Level:: Medical - moderate - high VTE Device Contraindication: N/A - Device Ordered VTE Drug Contraindication: N/A - Med Ordered
[2023-07-17] MEDS: guaiFENesin DM 200/20/10 ML 10 ML SYRUP PO (06:28)
[2023-07-17] MEDS: Ketorolac Tromethamine 30 MG/ML VIAL IVPUSH (06:28)
--- NOTE | 2023-07-17 07:40 | PC.NURSE ---
PT ATE BKFST. UP TO BR. NO DISTRESS. COMFORTABLE AT THIS TIME
[2023-07-17] MEDS: Magnesium Sulfate/H2O 2 GM/50 ML PIGGYBACK IV (07:50)
--- NOTE | 2023-07-17 08:07 | PHA.MEDREC ---
Pharmacy Consult ? Medication Reconciliation Pharmacy has completed the medication reconciliation.
[2023-07-17] MEDS: 0.9 % Sodium Chloride Flush 3 ML SYRINGE IVFLUSH ×2 (09:56→17:18)
[2023-07-17] MEDS: Docusate Sodium 100 MG CAPSULE PO (09:58)
[2023-07-17] MEDS: Enoxaparin Sodium 40 MG/0.4 ML SYRINGE SUBCUT (10:02)
[2023-07-17 10:13] LABS: Procalcitonin 0.04 ng/mL
--- NOTE | 2023-07-17 13:19 | PC.NURSE ---
pt waiting room assignment
--- NOTE | 2023-07-17 13:25 | P.EN_ITS ---
Event Note Date of Service: 07/17/23 Event Note: Day hospitalist update S: still wheezing though improved slightly O: Temp Pulse Resp BP Pulse Ox O2 Del Method 97.8 F 80 18 112/61 96 Room Air 07/16/23 23:26 07/17/23 11:39 07/17/23 11:39 07/17/23 06:17 07/17/23 06:17 07/17/23 06:17 Gen: in no acute distress HEENT: sclera anicteric, moist mucus membranes Neck: supple Lungs: extensive exp wheezing Heart: regular rate and rhythm, no murmurs Abd: soft, non-tender, non-distended Ext: no edema Skin: warm/well-perfused Neuro: alert and oriented x3, no focal findings Psych: appropriate affect A/P: d1 58yo F with asthma, recent diagnosis of influenza 07/12/23 admitted for asthma exacerbation asthma exacerbation due to influenza - continue steroids, scheduled/prn nebs - outside window for antiviral treatment of influenza to be of benefit VTE ppx - [facility] dispo - eventual home Time Spent With Patient Time: Total time managing care of this patient today ____ minutes.
--- NOTE | 2023-07-17 15:54 | MHC.EDTECH ---
Patient given lunch tray
--- NOTE | 2023-07-17 16:14 | PC.NURSE ---
pt reported central chest pain says it is stabbing and sharp. pt says the pain is different than the pain she has experienced with cough. MD notified. EKG ordered and trop ordered and sent to lab
[2023-07-17 16:44] LABS: Troponin-I High Sensitivity < 2.7 ng/L (<3.5-17.0)
[2023-07-17] MEDS: Lidocaine 4 % Patch ADH..PATCH 1 PATCH TRANSDERMA (17:14)
[2023-07-17] MEDS: methylPREDNISolone Sod Succ 40 MG/ML VIAL IVPUSH (17:16)
[2023-07-17 19:59] LABS: Troponin-I High Sensitivity < 2.7 ng/L (<3.5-17.0)
--- NOTE | 2023-07-17 22:00 | PC.NURSE ---
assumed care of the pt at 1900 - pt resting comfortably on stretcher i n no apparent distress. con property assessment monitor. denies pain or sob, asks when she will be getting a bed upstairs. this RN told pt she is not sure when beds will become available. pt given jeremy stoll, needs met. at bedside, call benítez within reach. plan of care ongoing
[2023-07-18] VITALS (10 sets, daily range): BP systolic 102–134; BP diastolic 52–83; PULSE 66–101; RESP 16–20; TEMP 36.2–36.6; O2SAT 95–97; BMI 27.3
[2023-07-18] MEDS: 0.9 % Sodium Chloride Flush 3 ML SYRINGE IVFLUSH ×2 (06:04→18:29)
[2023-07-18] MEDS: methylPREDNISolone Sod Succ 40 MG/ML VIAL IVPUSH ×2 (06:04→18:28)
[2023-07-18 06:18] LABS: MANUAL DIFF FLAG NO
[2023-07-18 06:24] LABS: Basophils Percent Auto 0.1 % (0-2); Hemoglobin 12.4 g/dl (12.0-16.0); Imm Gran Abs Auto 0.09 X10*3/uL (0.00-0.03); Imm Gran Pct Auto 0.7 % (0.0-0.4); Lymphocytes Absolute Auto 1.9 X10*3/uL (1.2-4.9); Lymphocytes Percent Auto 14.9 % (20-40); Mean Corpuscular HGB Conc 32.6 g/dl (31.0-35.0); Mean Corpuscular Hemoglobin 29.4 pg (27.0-33.0); Monocytes Absolute Auto 0.7 X10*3/uL (0.1-1.2); Monocytes Percent Auto 5.6 % (2-11); Neutrophils Percent Auto 78.7 % (45-73); Platelet Count 319 X10*3/uL (160-400); Red Blood Count 4.22 X10*6/uL (4.20-5.50); Red Cell Distribution Width 12.3 % (11.0-16.0); White Blood Count 12.7 X10*3/uL (4.8-10.8)
[2023-07-18 06:48] LABS: Anion Gap 14 (12-20); Blood Urea Nitrogen 20 mg/dL (9-16); Calcium 9.5 mg/dL (8.4-10.2); Carbon Dioxide 23 mmol/L (22-29); Chloride 109 mmol/L (96-108); Creatinine Clr Calc Pharmacy 62.6; Estimated Glomerular Filt Rate > 60; Glucose Random 128 mg/dL (60-115); Magnesium 2.3 mg/dL (1.6-2.6); Potassium 4.8 mmol/L (3.3-5.1); Sodium 141 mmol/L (135-145)
[2023-07-18] MEDS: Albuterol/Iprat 2.5/0.5MG 3 ML AMPUL.NEB INHALE ×4 (08:29→19:31)
--- NOTE | 2023-07-18 09:49 | MHC.CM.PN ---
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
--- NOTE | 2023-07-18 10:30 | PM.DS ---
DS: Providers Provider Date of Service: 07/18/23 Date of admission: 07/17/23 05:56 Date of discharge: 07/18/23 Primary care physician: Unknown Physician DS: Diagnosis Discharge Diagnosis (1) Influenza: Status: Acute (2) Mild intermittent asthma with (acute) exacerbation: Status: Acute DS: Summary Hospital Course Hospital Course: From the history and physical by the admitting hospitalist, John Field MD, 07/17/23: Patient is a 58 year old German speaking female with known history of asthma and who was recently diagnosed with the flu who presents to the emergency room last evening for evaluation of progressively worsening cough, shortness of breath and wheezing. She started feeling unwell soon after [place] and saw her primary care provider on 07/12/23 and was diagnosed with the flu and was sent home with MDI inhalers. However since then, she has continued to experience subjective fevers and chills, generalized body aches, headaches, dry cough and pleuritic chest pain. Over the last couple days she has noted worsening symptoms especially the cough, wheezing and shortness of breath. She has used both her Albuterol MDI inhalers and updrafts without any significant relief hence her decision to present to the emergency room tonight where initial evaluation done on arrival was notable for extensive wheezing and mild respiratory distress. She was however not febrile and a chest x-ray done did not show any infiltrates. She has received intravenous Solu-Medrol, albuterol updrafts and empiri antibiotics with improvement in her condition though she is not at her baseline. Admission was requested for continued care. 58yo F with asthma, recent diagnosis of influenza 07/12/23 admitted to the hospitalist service for asthma exacerbation. She was treated with IV steroids and nebulized bronchodilators. She was outside the window for antiviral treatment of influenza to be of much benefit. She improved symptomatically and was discharged home on prednisone. Time Attestation Total time managing care of this patient today: 35 mintues. Discharge coordination time: Greater than 30 minutes Quality: Safe Use of Opioids Does Pt have an Active Cancer Diagnosis on the Problem List?: No Quality: Stroke Does the patient have a stroke diagnosis?: No Physical Exam Vital Signs: Vital Signs: Last Vital Signs Temp 97.6 F 07/18/23 07:00 Pulse 75 07/18/23 08:40 Resp 18 07/18/23 08:40 BP 114/65 07/18/23 07:00 Pulse Ox 95 07/18/23 07:00 O2 Del Method Room Air 07/18/23 07:00 BMI result Body Mass Index 27.3 Gen: in no acute distress HEENT: sclera anicteric, moist mucus membranes Neck: supple Lungs: clear to auscultation bilaterally Heart: regular rate and rhythm, no murmurs Abd: soft, non-tender, non-distended Ext: no edema Skin: warm/well-perfused Neuro: alert and oriented x3, no focal findings Psych: appropriate affect DS: Data Data Completed and Pending Completed studies during hospitalization [Text1]: Laboratory Results WBC 12.7 X10*3/uL (4.8-10.8) H 07/18/23 05:33 RBC 4.22 X10*6/uL (4.20-5.50) 07/18/23 05:33 Hgb 12.4 g/dl (12.0-16.0) 07/18/23 05:33 Hct 38.0 % (37.0-47.0) 07/18/23 05:33 MCV 90.0 fL (80.0-98.0) 07/18/23 05:33 MCH 29.4 pg (27.0-33.0) 07/18/23 05:33 MCHC 32.6 g/dl (31.0-35.0) 07/18/23 05:33 RDW 12.3 % (11.0-16.0) 07/18/23 05:33 Plt Count 319 X10*3/uL (160-400) 07/18/23 05:33 MPV 11.0 fL (9.4-12.3) 07/18/23 05:33 Immature Gran % (Auto) 0.7 % (0.0-0.4) H 07/18/23 05:33 Neut % (Auto) 78.7 % (45-73) H 07/18/23 05:33 Lymph % (Auto) 14.9 % (20-40) L 07/18/23 05:33 [place] % (Auto) 5.6 % (2-11) 07/18/23 05:33 Eos % (Auto) 0.0 % (0-4) 07/18/23 05:33 Baso % (Auto) 0.1 % (0-2) 07/18/23 05:33 Lymph # (Auto) 1.9 X10*3/uL (1.2-4.9) 07/18/23 05:33 [place] # (Auto) 0.7 X10*3/uL (0.1-1.2) 07/18/23 05:33 Eos # (Auto) 0.0 X10*3/uL (0.0-0.4) 07/18/23 05:33 Baso # (Auto) 0.0 X10*3/uL (0.0-0.2) 07/18/23 05:33 Abs Immat Gran (auto) 0.09 X10*3/uL (0.00-0.03) H 07/18/23 05:33 Absolute Neuts (auto) 10.0 x10*3/uL (2.0-8.3) H 07/18/23 05:33 Absolute Nucleated RBC 0.000 X10*3/uL (0.0-0.012) 07/18/23 05:33 Nucleated RBC % (auto) 0.0 /100WBC (0.0-0.2) 07/18/23 05:33 Sodium 141 mmol/L (135-145) 07/18/23 05:33 Potassium 4.8 mmol/L (3.3-5.1) D 07/18/23 05:33 Chloride 109 mmol/L (96-108) H 07/18/23 05:33 Carbon Dioxide 23 mmol/L (22-29) 07/18/23 05:33 Anion Gap 14 (12-20) 07/18/23 05:33 BUN 20 mg/dL (9-16) H 07/18/23 05:33 Creatinine 0.73 mg/dL (0.5-1.4) 07/18/23 05:33 Estim Creat Clear Calc 62.6 07/18/23 05:33 Estimated GFR > 60 07/18/23 05:33 Random Glucose 128 mg/dL (60-115) H 07/18/23 05:33 Lactic Acid 1.7 mmol/L (0.5-2.0) 07/17/23 05:29 Calcium 9.5 mg/dL (8.4-10.2) 07/18/23 05:33 Magnesium 2.3 mg/dL (1.6-2.6) 07/18/23 05:33 Troponin I High Sens < 2.7 ng/L (<3.5-17.0) 07/17/23 19:08 Procalcitonin 0.04 ng/mL 07/17/23 01:51 Influenza Type A (PCR) NEGATIVE (Negative) 07/17/23 00:05 Influenza Type B (PCR) NEGATIVE (Negative) 07/17/23 00:05 RSV RNA Qual (PCR) NEGATIVE (Negative) 07/17/23 00:05 SARS-CoV-2 RNA (RT-PCR) NEGATIVE (Negative) 07/17/23 00:05 Impressions Chest X-Ray 07/17/23 00:30 IMPRESSION: Slightly increased interstitial markings that could be seen in the context of asthma, bronchitis, reactive airways disease or atypical infections. Discharge Plan Discharge Anticipated Discharge Date/Time: 07/18/23 10:57 Patient Disposition: Home, Self-Care Discharge Diagnosis: asthma exacerbation Referrals: Physician,Unknown J [Primary Care Provider] - 1 Week Discharge Medications: New lidocaine [Lidocaine Pain Relief] 4 % Adhesive Patch,Medicated 1 patch transdermal DAILY PRN (Reason: chest wall pain) Qty: 30 0RF Protocol: Apply to: Apply to: chest wall prednisone 20 mg tablet 40 mg PO DAILY Qty: 6 0RF Continued albuterol sulfate 2.5 mg /3 mL (0.083 %) solution for nebulization 2.5 mg inhalation Q6H PRN (Reason: wheezing) albuterol sulfate [Ventolin HFA] 90 mcg/actuation HFA aerosol inhaler 2 puff inhalation Q4H PRN (Reason: wheezing) cholecalciferol (vitamin D3) 50 mcg (2,000 unit) tablet 50 mcg PO DAILY vitamin E (dl, acetate) 180 mg (400 unit) capsule 360 mg PO DAILY Discharge Orders: Discharge Order (Routine); Ordered 07/18/23 Ordered By: Rufina Bryan Diet: Advance to usual diet Activity on Discharge: As tolerated Stand Alone Forms: Patient Portal Discharge page Care Plan Goals: resolution of asthma flare Health Concerns: asthma exacerbation Plan of Treatment: take prednisone 40 mg daily for 3 days use albuterol inhaled or nebulized for rescue Please follow up with your primary care doctor within 1 week. Return to the hospital if you experience recurrent or worsening symptoms. Assessment: See Discharge Summary.
--- NOTE | 2023-07-18 10:37 | MHC.CM.PN ---
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
[2023-07-18] MEDS: Lidocaine 4 % Patch ADH..PATCH 1 PATCH TRANSDERMA (11:04)
[2023-07-18] MEDS: Docusate Sodium 100 MG CAPSULE PO ×2 (11:04→20:48)
--- NOTE | 2023-07-18 11:45 | HO.PM.IMPN ---
Subjective Subjective Date of Service: 07/18/23 Interval History: pt was going to be discharged but developed coughing fit with wheezing + resp distress c/o chest wall pain/tenderness Review of Systems Review of Systems: Yes all other systems are reviewed and are negative Physical Exam Vital Signs: Vital Signs: Last Vital Signs Temp 97.6 F 07/18/23 07:00 Pulse 75 07/18/23 08:40 Resp 18 07/18/23 08:40 BP 114/65 07/18/23 07:00 Pulse Ox 95 07/18/23 07:00 O2 Del Method Room Air 07/18/23 07:00 BMI result Body Mass Index 27.3 Gen: tachypneic HEENT: sclera anicteric, moist mucus membranes Neck: supple Lungs: diffuse expiratory wheezing Heart: regular rate and rhythm, no murmurs Abd: soft, non-tender, non-distended Ext: no edema Skin: warm/well-perfused Neuro: alert and oriented x3, no focal findings Psych: appropriate affect Objective Data Active Medications Acetaminophen (Acetaminophen 325 Mg Tablet) 650 mg PO Q6H PRN PRN Reason: Pain, Mild (Pain Scale 1-3) Al Hydroxide/Mg Hydroxide (Magnesium Hydrox/Alum Hydrox 30 Ml Oral.Susp) 30 ml PO Q4H PRN PRN Reason: Heartburn/Nausea Albuterol Sulfate (Albuterol Sulfate (0.083%) 2.5 Mg/3 Ml Vial.Neb) 2.5 mg INHALE Q2H PRN PRN Reason: Shortness of Breath/Wheezing Albuterol/Ipratropium (Albuterol/Iprat 2.5/0.5mg 3 Ml Ampul.Neb) 3 ml INHALE RQ4H WHILE AWAKE [facility] Last Admin: 07/18/23 08:29 Dose: 3 ml Documented By: OSMEL Docusate Sodium (Docusate Sodium 100 Mg Capsule) 100 mg PO BID [facility] Last Admin: 07/18/23 11:04 Dose: 100 mg Documented By: CHAYO Enoxaparin Sodium (Enoxaparin Sodium 40 Mg/0.4 Ml Syringe) 40 mg SUBCUT DAILY [facility] Last Admin: 07/17/23 10:02 Dose: 40 mg Documented By: LUKAS Lidocaine (Lidocaine 4 % Patch Adh..Patch) 1 patch TRANSDERMA DAILY [facility]; Protocol Last Admin: 07/18/23 11:04 Dose: 1 patch Documented By: CHAYO Melatonin (Melatonin 3 Mg Tablet) 6 mg PO BEDTIME PRN PRN Reason: Insomnia Methylprednisolone Sodium Succinate (Methylprednisolone Sod Succ 40 Mg/Ml Vial) 40 mg IVPUSH Q12H [facility] Last Admin: 07/18/23 06:04 Dose: 40 mg Documented By: SKYLAR Ondansetron HCl (Ondansetron Hcl 4 Mg/2 Ml Vial) 4 mg IVPUSH Q8H PRN PRN Reason: Nausea and Vomiting Oxycodone HCl (Oxycodone Hcl Immed Release 5 Mg Tablet) 5 mg PO Q6H PRN PRN Reason: Pain, Severe (Pain Scale 7-10) Sodium Chloride (0.9 % Sodium Chloride Flush 3 Ml Syringe) 3 ml IVFLUSH QSHIFT [facility] Last Admin: 07/18/23 06:04 Dose: 3 ml Documented By: SKYLAR Vitamin D (Cholecalciferol (Vitamin D3) 25 Mcg Tablet) 50 mcg PO DAILY [facility] Last Admin: 07/18/23 11:06 Dose: Not Given Documented By: CHAYO Non-Admin Reason: Patient Refused Labs 07/18/23 05:33 07/18/23 05:33 Labs: Laboratory Results - last 24 hr 07/18/23 05:33 MCV 90.0 MCH 29.4 MCHC 32.6 RDW 12.3 Plt Count 319 MPV 11.0 Immature Gran % (Auto) 0.7 H Neut % (Auto) 78.7 H Lymph % (Auto) 14.9 L [place] % (Auto) 5.6 Eos % (Auto) 0.0 Baso % (Auto) 0.1 Lymph # (Auto) 1.9 [place] # (Auto) 0.7 Eos # (Auto) 0.0 Baso # (Auto) 0.0 Abs Immat Gran (auto) 0.09 H Absolute Neuts (auto) 10.0 H Absolute Nucleated RBC 0.000 Nucleated RBC % (auto) 0.0 Anion Gap 14 Estim Creat Clear Calc 62.6 Estimated GFR > 60 Random Glucose 128 H Calcium 9.5 Magnesium 2.3 Microbiology Microbiology Results: Microbiology 07/17/23 05:29 Blood Culture - Preliminary Blood - Venous No growth after 24 hours. 07/17/23 05:18 Blood Culture - Preliminary Blood - Venous No growth after 24 hours. Assessment and Plan (1) Mild intermittent asthma with (acute) exacerbation: Status: Acute Plan d2 58yo F with asthma, recent diagnosis of influenza 07/12/23 admitted for asthma exacerbation asthma exacerbation due to influenza - continue steroids, scheduled/prn nebs - outside window for antiviral treatment of influenza to be of benefit chest wall pain - hs-Tn-I x2 negative, EKG without ischemic changes, place lidocaine patch for analgesia VTE ppx - LMWH dispo - eventual home In my clinical judgment, the patient requires continued inpatient hospitalization for the following reasons: resp distress Total time managing care of this patient today: 45 minutes. Quality Stroke Does the patient have a stroke diagnosis?: No VTE Prior VTE?: No VTE Risk Level:: Medical - moderate - high VTE Device Contraindication: N/A - Device Ordered VTE Drug Contraindication: N/A - Med Ordered
[2023-07-18] MEDS: Enoxaparin Sodium 40 MG/0.4 ML SYRINGE SUBCUT (14:09)
[2023-07-18] MEDS: guaiFENesin DM 100/10/5 ML 5 ML SYRUP PO ×2 (14:10→18:35)
[2023-07-18] MEDS: Benzonatate 100 MG CAPSULE 200 MG PO (14:10)
[2023-07-19] VITALS (9 sets, daily range): BP systolic 110–132; BP diastolic 60–71; PULSE 65–109; RESP 18; TEMP 36–36.2; O2SAT 95–98
[2023-07-19] MEDS: 0.9 % Sodium Chloride Flush 3 ML SYRINGE IVFLUSH ×3 (00:14→23:58)
[2023-07-19] MEDS: guaiFENesin DM 100/10/5 ML 5 ML SYRUP PO ×2 (02:07→16:57)
[2023-07-19] MEDS: oxyCODONE HCl Immed Release 5 MG TABLET PO ×3 (02:08→13:45)
[2023-07-19] MEDS: methylPREDNISolone Sod Succ 40 MG/ML VIAL IVPUSH ×2 (05:27→16:57)
[2023-07-19] MEDS: Benzonatate 100 MG CAPSULE 200 MG PO ×2 (07:47→13:45)
[2023-07-19] MEDS: Docusate Sodium 100 MG CAPSULE PO ×2 (07:47→20:26)
[2023-07-19] MEDS: Cholecalciferol (Vitamin D3) 25 MCG TABLET 50 MCG PO (07:47)
[2023-07-19] MEDS: Enoxaparin Sodium 40 MG/0.4 ML SYRINGE SUBCUT (07:47)
[2023-07-19] MEDS: Lidocaine 4 % Patch ADH..PATCH 1 PATCH TRANSDERMA (07:48)
[2023-07-19] MEDS: Albuterol/Iprat 2.5/0.5MG 3 ML AMPUL.NEB INHALE ×4 (08:14→19:24)
--- NOTE | 2023-07-19 09:58 | HO.PM.IMPN ---
Subjective Subjective Date of Service: 07/19/23 Interval History: still wheezing +dyspneic Review of Systems Review of Systems: Yes all other systems are reviewed and are negative Physical Exam Vital Signs: Vital Signs: Last Vital Signs Temp 97.0 F 07/19/23 07:59 Pulse 109 H 07/19/23 08:14 Resp 18 07/19/23 08:14 BP 110/62 07/19/23 07:59 Pulse Ox 95 07/19/23 07:59 O2 Del Method Room Air 07/19/23 07:59 BMI result Body Mass Index 27.3 Gen: NAD HEENT: sclera anicteric, moist mucus membranes Neck: supple Lungs: diffuse inspiratory and expiratory wheezing + prolonged expiration Heart: regular rate and rhythm, no murmurs Abd: soft, non-tender, non-distended Ext: no edema Skin: warm/well-perfused Neuro: alert and oriented x3, no focal findings Psych: appropriate affect Objective Data Active Medications Acetaminophen (Acetaminophen 325 Mg Tablet) 650 mg PO Q6H PRN PRN Reason: Pain, Mild (Pain Scale 1-3) Al Hydroxide/Mg Hydroxide (Magnesium Hydrox/Alum Hydrox 30 Ml Oral.Susp) 30 ml PO Q4H PRN PRN Reason: Heartburn/Nausea Albuterol Sulfate (Albuterol Sulfate (0.083%) 2.5 Mg/3 Ml Vial.Neb) 2.5 mg INHALE Q2H PRN PRN Reason: Shortness of Breath/Wheezing Albuterol/Ipratropium (Albuterol/Iprat 2.5/0.5mg 3 Ml Ampul.Neb) 3 ml INHALE RQ4H WHILE AWAKE [facility] Last Admin: 07/19/23 08:14 Dose: 3 ml Documented By: CAMRON Benzonatate (Benzonatate 100 Mg Capsule) 200 mg PO TID PRN PRN Reason: cough Last Admin: 07/19/23 07:47 Dose: 200 mg Documented By: KYARA Docusate Sodium (Docusate Sodium 100 Mg Capsule) 100 mg PO BID [facility] Last Admin: 07/19/23 07:47 Dose: 100 mg Documented By: KYARA Enoxaparin Sodium (Enoxaparin Sodium 40 Mg/0.4 Ml Syringe) 40 mg SUBCUT DAILY [facility] Last Admin: 07/19/23 07:47 Dose: 40 mg Documented By: KYARA Guaifenesin/Dextromethorphan (Guaifenesin Dm 100/10/5 Ml 5 Ml Syrup) 5 ml PO Q4H PRN PRN Reason: cough Last Admin: 07/19/23 02:07 Dose: 5 ml Documented By: BALJEET Lidocaine (Lidocaine 4 % Patch Adh..Patch) 1 patch TRANSDERMA DAILY [facility]; Protocol Last Admin: 07/19/23 07:48 Dose: 1 patch Documented By: KYARA Melatonin (Melatonin 3 Mg Tablet) 6 mg PO BEDTIME PRN PRN Reason: Insomnia Methylprednisolone Sodium Succinate (Methylprednisolone Sod Succ 40 Mg/Ml Vial) 40 mg IVPUSH Q12H [facility] Last Admin: 07/19/23 05:27 Dose: 40 mg Documented By: BALJEET Ondansetron HCl (Ondansetron Hcl 4 Mg/2 Ml Vial) 4 mg IVPUSH Q8H PRN PRN Reason: Nausea and Vomiting Oxycodone HCl (Oxycodone Hcl Immed Release 5 Mg Tablet) 5 mg PO Q6H PRN PRN Reason: Pain, Severe (Pain Scale 7-10) Last Admin: 07/19/23 07:47 Dose: 5 mg Documented By: KYARA Sodium Chloride (0.9 % Sodium Chloride Flush 3 Ml Syringe) 3 ml IVFLUSH QSHIFT [facility] Last Admin: 07/19/23 07:50 Dose: Not Given Documented By: KYARA Non-Admin Reason: Previously Administered Vitamin D (Cholecalciferol (Vitamin D3) 25 Mcg Tablet) 50 mcg PO DAILY [facility] Last Admin: 07/19/23 07:47 Dose: 50 mcg Documented By: KYARA Labs 07/18/23 05:33 07/18/23 05:33 Microbiology Microbiology Results: Microbiology 07/17/23 05:29 Blood Culture - Preliminary Blood - Venous No growth after 48 hours. 07/17/23 05:18 Blood Culture - Preliminary Blood - Venous No growth after 48 hours. Assessment and Plan (1) Mild intermittent asthma with (acute) exacerbation: Status: Acute Plan d3 58yo F with asthma, recent diagnosis of influenza 07/12/23 admitted for asthma exacerbation asthma exacerbation due to influenza - continue steroids, scheduled/prn nebs - outside window for antiviral treatment of influenza to be of benefit chest wall pain - hs-Tn-I x2 negative, EKG without ischemic changes, lidocaine patch for analgesia VTE ppx - LMWH dispo - eventual home In my clinical judgment, the patient requires continued inpatient hospitalization for the following reasons: unrelieved wheezing Total time managing care of this patient today: 35 minutes. Quality Stroke Does the patient have a stroke diagnosis?: No VTE Prior VTE?: No VTE Risk Level:: Medical - moderate - high VTE Device Contraindication: N/A - Device Ordered VTE Drug Contraindication: N/A - Med Ordered
--- NOTE | 2023-07-19 13:36 | MHC.CM.PN ---
per rounds pt likely to dc in 1 day plans are for home
[2023-07-20 03:06] VITALS: BP 96/69; PULSE 67; RESP 18; TEMP 36.2; O2SAT 94
[2023-07-20] MEDS: guaiFENesin DM 100/10/5 ML 5 ML SYRUP PO (03:19)
[2023-07-20] MEDS: methylPREDNISolone Sod Succ 40 MG/ML VIAL IVPUSH (06:11)
[2023-07-20] MEDS: Albuterol/Iprat 2.5/0.5MG 3 ML AMPUL.NEB INHALE (07:20)
[2023-07-20 07:22] VITALS: PULSE 61; RESP 16; O2SAT 97
[2023-07-20 08:00] VITALS: BP 114/64; PULSE 66; RESP 17; TEMP 36.2; O2SAT 96
[2023-07-20] MEDS: Docusate Sodium 100 MG CAPSULE PO (09:05)
[2023-07-20] MEDS: Cholecalciferol (Vitamin D3) 25 MCG TABLET 50 MCG PO (09:05)
[2023-07-20] MEDS: Lidocaine 4 % Patch ADH..PATCH 1 PATCH TRANSDERMA (09:06)
[2023-07-20] MEDS: 0.9 % Sodium Chloride Flush 3 ML SYRINGE IVFLUSH (09:06)
--- NOTE | 2023-07-20 10:58 | PM.DS ---
DS: Providers Provider Date of Service: 07/20/23 Date of admission: 07/17/23 05:56 Date of discharge: 07/20/23 Primary care physician: Unknown Physician DS: Diagnosis Discharge Diagnosis (1) Mild intermittent asthma with (acute) exacerbation: Status: Acute (2) Rhinovirus infection: Status: Acute DS: Summary Hospital Course Hospital Course: From the history and physical by the admitting hospitalist, John Field MD, 07/17/23: Patient is a 58 year old Polish speaking female with known history of asthma and who was recently diagnosed with the flu who presents to the emergency room last evening for evaluation of progressively worsening cough, shortness of breath and wheezing. She started feeling unwell soon after [place] and saw her primary care provider on 07/12/23 and was diagnosed with the flu and was sent home with MDI inhalers. However since then, she has continued to experience subjective fevers and chills, generalized body aches, headaches, dry cough and pleuritic chest pain. Over the last couple days she has noted worsening symptoms especially the cough, wheezing and shortness of breath. She has used both her Albuterol MDI inhalers and updrafts without any significant relief hence her decision to present to the emergency room tonight where initial evaluation done on arrival was notable for extensive wheezing and mild respiratory distress. She was however not febrile and a chest x-ray done did not show any infiltrates. She has received intravenous Solu-Medrol, albuterol updrafts and empiri antibiotics with improvement in her condition though she is not at her baseline. Admission was requested for continued care. 58yo F with asthma, recent diagnosis of influenza 07/12/23 admitted to the hospitalist service for asthma exacerbation. She was treated with IV steroids and nebulized bronchodilators. She was outside the window for antiviral treatment of influenza to be of much benefit. Repeat PCR testing was positive for rhinovirus/enterovirus. She improved symptomatically and was discharged home on a 10-day prednisone taper. Time Attestation Discharge coordination time: Greater than 30 minutes Quality: Safe Use of Opioids Does Pt have an Active Cancer Diagnosis on the Problem List?: No Quality: Stroke Does the patient have a stroke diagnosis?: No Physical Exam Vital Signs: Vital Signs: Last Vital Signs Temp 97.1 F 07/20/23 08:00 Pulse 66 07/20/23 08:00 Resp 17 07/20/23 08:00 BP 114/64 07/20/23 08:00 Pulse Ox 96 07/20/23 08:00 O2 Del Method Room Air 07/20/23 08:00 BMI result Body Mass Index 27.3 Gen: in no acute distress HEENT: sclera anicteric, moist mucus membranes Neck: supple Lungs: rare exp wheeze, good air entry throughout Heart: regular rate and rhythm, no murmurs Abd: soft, non-tender, non-distended Ext: no edema Skin: warm/well-perfused Neuro: alert and oriented x3, no focal findings Psych: appropriate affect DS: Data Data Completed and Pending Completed studies during hospitalization [Text1]: Laboratory Results WBC 12.7 X10*3/uL (4.8-10.8) H 07/18/23 05:33 RBC 4.22 X10*6/uL (4.20-5.50) 07/18/23 05:33 Hgb 12.4 g/dl (12.0-16.0) 07/18/23 05:33 Hct 38.0 % (37.0-47.0) 07/18/23 05:33 MCV 90.0 fL (80.0-98.0) 07/18/23 05:33 MCH 29.4 pg (27.0-33.0) 07/18/23 05:33 MCHC 32.6 g/dl (31.0-35.0) 07/18/23 05:33 RDW 12.3 % (11.0-16.0) 07/18/23 05:33 Plt Count 319 X10*3/uL (160-400) 07/18/23 05:33 MPV 11.0 fL (9.4-12.3) 07/18/23 05:33 Immature Gran % (Auto) 0.7 % (0.0-0.4) H 07/18/23 05:33 Neut % (Auto) 78.7 % (45-73) H 07/18/23 05:33 Lymph % (Auto) 14.9 % (20-40) L 07/18/23 05:33 [place] % (Auto) 5.6 % (2-11) 07/18/23 05:33 Eos % (Auto) 0.0 % (0-4) 07/18/23 05:33 Baso % (Auto) 0.1 % (0-2) 07/18/23 05:33 Lymph # (Auto) 1.9 X10*3/uL (1.2-4.9) 07/18/23 05:33 [place] # (Auto) 0.7 X10*3/uL (0.1-1.2) 07/18/23 05:33 Eos # (Auto) 0.0 X10*3/uL (0.0-0.4) 07/18/23 05:33 Baso # (Auto) 0.0 X10*3/uL (0.0-0.2) 07/18/23 05:33 Abs Immat Gran (auto) 0.09 X10*3/uL (0.00-0.03) H 07/18/23 05:33 Absolute Neuts (auto) 10.0 x10*3/uL (2.0-8.3) H 07/18/23 05:33 Absolute Nucleated RBC 0.000 X10*3/uL (0.0-0.012) 07/18/23 05:33 Nucleated RBC % (auto) 0.0 /100WBC (0.0-0.2) 07/18/23 05:33 Sodium 141 mmol/L (135-145) 07/18/23 05:33 Potassium 4.8 mmol/L (3.3-5.1) D 07/18/23 05:33 Chloride 109 mmol/L (96-108) H 07/18/23 05:33 Carbon Dioxide 23 mmol/L (22-29) 07/18/23 05:33 Anion Gap 14 (12-20) 07/18/23 05:33 BUN 20 mg/dL (9-16) H 07/18/23 05:33 Creatinine 0.73 mg/dL (0.5-1.4) 07/18/23 05:33 Estim Creat Clear Calc 62.6 07/18/23 05:33 Estimated GFR > 60 07/18/23 05:33 Random Glucose 128 mg/dL (60-115) H 07/18/23 05:33 Lactic Acid 1.7 mmol/L (0.5-2.0) 07/17/23 05:29 Calcium 9.5 mg/dL (8.4-10.2) 07/18/23 05:33 Magnesium 2.3 mg/dL (1.6-2.6) 07/18/23 05:33 Troponin I High Sens < 2.7 ng/L (<3.5-17.0) 07/17/23 19:08 Procalcitonin 0.04 ng/mL 07/17/23 01:51 Respiratory Panel [place] See Note 07/19/23 10:30 Adenovirus (Rapid PCR) Not Detected (Not Detect.) 07/19/23 10:30 B.pert (TEM-PCR) Not Detected (Not Detect.) 07/19/23 10:30 B.parapertussis DNA PCR Not Detected (Not Detect.) 07/19/23 10:30 C. pneumoniae DNA (PCR) Not Detected (Not Detect.) 07/19/23 10:30 Coronavirus OC43 (PCR) Not Detected (Not Detect.) 07/19/23 10:30 Coronavirus HKU1 (PCR) Not Detected (Not Detect.) 07/19/23 10:30 Coronavirus 229E (PCR) Not Detected (Not Detect.) 07/19/23 10:30 Coronavirus NL63 (PCR) Not Detected (Not Detect.) 07/19/23 10:30 Human Metapneumovir PCR Not Detected (Not Detect.) 07/19/23 10:30 Influenza A (RT-PCR) Not Detected (Not Detect.) 07/19/23 10:30 Influenza Type A (PCR) NEGATIVE (Negative) 07/17/23 00:05 Influenza B (RT-PCR) Not Detected (Not Detect.) 07/19/23 10:30 Influenza Type B (PCR) NEGATIVE (Negative) 07/17/23 00:05 M. pneumoniae (PCR) Not Detected (Not Detect.) 07/19/23 10:30 Parainfluenza 1 (PCR) Not Detected (Not Detect.) 07/19/23 10:30 Parainfluenza 2 (PCR) Not Detected (Not Detect.) 07/19/23 10:30 Parainfluenza 3 (PCR) Not Detected (Not Detect.) 07/19/23 10:30 Parainfluenza 4 (PCR) Not Detected (Not Detect.) 07/19/23 10:30 RSV (PCR) Not Detected (Not Detect.) 07/19/23 10:30 RSV RNA Qual (PCR) NEGATIVE (Negative) 07/17/23 00:05 Entero/Rhino (PCR) Detected (Not Detect.) A 07/19/23 10:30 SARS-CoV-2 RNA (RT-PCR) Not Detected (Not Detect.) 07/19/23 10:30 Impressions Chest X-Ray 07/17/23 00:30 IMPRESSION: Slightly increased interstitial markings that could be seen in the context of asthma, bronchitis, reactive airways disease or atypical infections. Discharge Plan Discharge Anticipated Discharge Date/Time: 07/18/23 10:57 Patient Disposition: Home, Self-Care Discharge Diagnosis: asthma exacerbation due to rhinovirus infection Referrals: Physician,Unknown J [Primary Care Provider] - 1 Week Discharge Medications: New lidocaine [Lidocaine Pain Relief] 4 % Adhesive Patch,Medicated 1 patch transdermal DAILY PRN (Reason: chest wall pain) Qty: 30 0RF Protocol: Apply to: Apply to: chest wall prednisone 10 mg tablet 10 mg PO DIRECTED Qty: 21 0RF Rx Instructions: see taper instructions: 40 mg daily x 2 days, then 30 mg daily x 2 days, then 20 mg daily x 2 days, then 10 mg daily x 2 days, then 5 mg daily x 2 days Continued albuterol sulfate 2.5 mg /3 mL (0.083 %) solution for nebulization 2.5 mg inhalation Q6H PRN (Reason: wheezing) albuterol sulfate [Ventolin HFA] 90 mcg/actuation HFA aerosol inhaler 2 puff inhalation Q4H PRN (Reason: wheezing) cholecalciferol (vitamin D3) 50 mcg (2,000 unit) tablet 50 mcg PO DAILY vitamin E (dl, acetate) 180 mg (400 unit) capsule 360 mg PO DAILY Discharge Orders: Discharge Order (Routine); Ordered 07/20/23 Ordered By: Rufina Bryan Diet: Advance to usual diet Activity on Discharge: As tolerated Stand Alone Forms: Patient Portal Discharge page Care Plan Goals: resolution of asthma flare Health Concerns: asthma exacerbation due to rhinovirus infection Plan of Treatment: take prednisone 40 mg daily for 2 days, then 30 mg daily for 2 days, then 20 mg daily for 2 days, then 10 mg daily for 2 days, then 5 mg daily for 2 days use albuterol inhaled or nebulized for rescue Please follow up with your primary care doctor within 1 week. Return to the hospital if you experience recurrent or worsening symptoms. Assessment: See Discharge Summary.
--- NOTE | 2023-07-20 11:09 | MHC.CM.PN ---
DP: PT HAS BEEN MEDICALLY CLEARED FOR DC HOME, NO SERVICES. PT HAS OWN RIDE HOME.
[2023-07-20 11:40] VITALS: PULSE 71; RESP 16; O2SAT 97
== END 2023-07-20 13:15 | disposition home or self-care (01) | DRG 141 ==
LOC: HO.ED 07-17 05:01 → HO.EDOVER 07-17 06:01 → HO.S3 07-18 05:46
PROVIDERS: Admitting Provider Internal Medicine; Emergency Provider Emergency Medicine Emergency Medical Services; Visit Provider Family Medicine
DX: J45.21 Mild intermittent asthma with (acute) exacerbation (principal); B97.10 Unspecified enterovirus as the cause of diseases classified elsewhere; B97.89 Other viral agents as the cause of diseases classified elsewhere; Z79.899 Other long term (current) drug therapy
CPT/HCPCS: 0241U; 36415; 71045; 80048; 83605; 83735; 84145; 84484; 85025; 87040; 87633; 93005; 94640; 99285; J0456; J0696; J1650; J1885; J2405; J2920; J2930; J3475

== ENCOUNTER → 2023-07-17 01:41 | Outpatient (BNV) | payer OTHER, SELFPAY | PROVIDERS: Admitting Provider Internal Medicine; Emergency Provider Emergency Medicine Emergency Medical Services; Visit Provider Internal Medicine | DX: I45.81 Long QT syndrome (principal); R94.31 Abnormal electrocardiogram [ECG] [EKG] | CPT/HCPCS: 93010 ==

== ENCOUNTER → 2023-07-17 05:56 | Outpatient (BNV) | payer OTHER, SELFPAY | PROVIDERS: Admitting Provider Internal Medicine; Emergency Provider Emergency Medicine Emergency Medical Services; Visit Provider Internal Medicine | DX: J45.51 Severe persistent asthma with (acute) exacerbation (principal); J20.9 Acute bronchitis, unspecified; J11.1 Influenza due to unidentified influenza virus with other respiratory manifestations; J45.21 Mild intermittent asthma with (acute) exacerbation | CPT/HCPCS: 99223; 99232; 99239; 99499 ==